=== PATIENT | female | born 2005 | race African-American/Black ===

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

== ENCOUNTER 2023-12-17 09:38 | Emergency (ER) | payer OTHER ==
[2023-12-17 10:05] VITALS: BP 121/76; PULSE 103; RESP 18; TEMP 98.3; BMI 30.2
[2023-12-17 10:50] LABS: EPI CELLS 6 /uL (0-25.1); HYALINE CASTS 1 /uL (0-3.1); URINE APPEARANCE TURBID; URINE BACTERIA >9,000 /uL (0-1359); URINE BILIRUBIN NEGATIVE (NEGATIVE); URINE COLOR YELLOW; URINE GLUCOSE (UA) NEGATIVE (NEGATIVE); URINE KETONE NEGATIVE (NEGATIVE); URINE LEUK ESTERASE 3+ (NEGATIVE); URINE NITRITE NEGATIVE (NEGATIVE); URINE PROTEIN 3+ (NEGATIVE); URINE WBC 12681 /uL (0-25.8)
[2023-12-17 10:51] LABS: HCG,QUALITATIVE URINE Negative
[2023-12-17] MEDS ORDERED: NITROFURANTOIN MACROCRYSTAL 50 MG CAPSULE (FP) ONE (11:03)
[2023-12-17] MEDS ORDERED: IBUPROFEN 600 MG TABLET (FP) PO ONE ×2 (11:03→11:05)
[2023-12-17] MEDS: IBUPROFEN 600 MG TABLET (FP) PO ONE (11:07)
[2023-12-17] MEDS: NITROFURANTOIN MONOHYD/M-CRYST 100 MG CAPSULE PO SCH (11:07)
[2023-12-17 11:27] LABS: URINE RBC 357 /uL (0-23.9)
== END 2023-12-17 11:08 | disposition home or self-care (01) ==
LOC: JERFT 09:38 → JER 09:38 → JERFT 11:08
DX: N30.00 Acute cystitis without hematuria (principal); R35.0 Frequency of micturition; R39.15 Urgency of urination; R10.30 Lower abdominal pain, unspecified
CPT/HCPCS: 81003; 84703; 87086; 87186; 99283-25

== ENCOUNTER 2023-12-24 16:32 | Emergency (ER) | payer OTHER ==
[2023-12-24 16:39] VITALS: BP 125/50; PULSE 80; RESP 16; TEMP 98.4; BMI 30.5
[2023-12-24] MEDS ORDERED: IBUPROFEN 600 MG TABLET (FP) PO ONE (17:40)
[2023-12-24] MEDS: IBUPROFEN 600 MG TABLET (FP) PO ONE (17:45)
== END 2023-12-24 18:46 | disposition home or self-care (01) ==
LOC: JERFT 16:32
DX: S93.401A Sprain of unspecified ligament of right ankle, initial encounter (principal); X50.1XXA Overexertion from prolonged static or awkward postures, initial encounter; Y93.01 Activity, walking, marching and hiking
CPT/HCPCS: 73610-TC-RT-FY; 99283-25